=== PATIENT | female | born 2000 | race Caucasian/White ===

== ENCOUNTER 2024-05-26 12:22 | Inpatient (IN) | payer SELFPAY ==
[~2024-05-26] VITALS: Ht 170.2 cm; Wt 114.5 kg
--- NOTE | 2024-05-26 13:51 | NUR ---
Pt. to the floor. Pt is A&XO3, assessment complete. INT to rt. ac. Pt. reports pain is tolerable at this time. Call light within reach.
[2024-05-26] MEDS ORDERED: ZOFRAN 4MG T4 MG/TAB PO (13:57)
[2024-05-26] MEDS ORDERED: Acetaminophen 500 MG TAB PO PRN (14:15)
[2024-05-26] MEDS ORDERED: NS 1,000 ML IV SCH (14:15)
[2024-05-26] MEDS ORDERED: Morphine 4 MG/ML VIAL IV SCH (14:15)
[2024-05-26] MEDS ORDERED: Ondansetron 4 MG/2 ML VIAL IV PRN (14:15)
[2024-05-26 14:42] LABS: BASO % 0.5 % (0.0-2.0); EOS # 0.1 K/mm3 (0.0-0.7); EOS % 1.4 % (0.0-4.0); GRAN # 4.1 K/mm3 (1.4-6.5); GRAN % 63.5 % (42.2-75.2); HEMATOCRIT 39.6 % (37.0-47.0); LYMPH # 1.9 K/mm3 (1.2-3.4); LYMPH % 29.8 % (20.0-51.0); MEAN CELL VOLUME 88 fl (80.0-100.0); MEAN CORPUSCULAR HEMOGLOBIN 31 pg (27-31); MEAN CORPUSCULAR HGB CONC 35 g/dl (33.0-37.0); MEAN PLATELET VOLUME 10.4 fl (7.4-10.4); MONO # 0.3 K/mm3 (0.1-0.6); MONO % 4.6 % (1.7-9.3); PLATELET COUNT 243 K/mm3 (130-400); REDCELL DISTRIBUTION WIDTH-CV 11.4 % (11.5-14.5)
[2024-05-26] MEDS ORDERED: Morphine 4 MG/ML VIAL IV PRN (14:45)
[2024-05-26 15:01] LABS: ALBUMIN 3.5 g/dL (3.5-5.0); BILIRUBIN,TOTAL 0.3 mg/dL (0.2-1.2); CALCIUM 8.9 mg/dL (8.4-10.2); CREATININE, serum 0.7 mg/dL (0.57-1.11); MAGNESIUM 1.9 mg/dL (1.6-2.6); POTASSIUM 4.5 mEq/L (3.5-4.5); TOTAL PROTEIN 5.9 g/dl (6.2-8.1)
[2024-05-26 16:00] VITALS: BP 109/75; PULSE 65; TEMP 98.1
[2024-05-26 19:19] VITALS: BP 113/74; PULSE 59; TEMP 98.3
[2024-05-26 20:21] VITALS: BP_SYST 113
[2024-05-26 23:58] VITALS: BP 109/65; PULSE 68; TEMP 97.9
[2024-05-27] VITALS (15 sets, daily range): BP systolic 107–130; BP diastolic 54–72; PULSE 56–90; TEMP 97.6–98.2
[2024-05-27 06:30] LABS: BASO # 0.1 K/mm3 (0.0-0.2); EOS # 0.1 K/mm3 (0.0-0.7); EOS % 2.1 % (0.0-4.0); GRAN # 2.9 K/mm3 (1.4-6.5); GRAN % 56.2 % (42.2-75.2); HEMATOCRIT 37.8 % (37.0-47.0); HEMOGLOBIN 13.2 g/dl (12.5-16.0); LYMPH # 1.8 K/mm3 (1.2-3.4); LYMPH % 34.5 % (20.0-51.0); MEAN CELL VOLUME 89 fl (80.0-100.0); MEAN CORPUSCULAR HEMOGLOBIN 31 pg (27-31); MEAN CORPUSCULAR HGB CONC 35 g/dl (33.0-37.0); MEAN PLATELET VOLUME 10.4 fl (7.4-10.4); MONO # 0.3 K/mm3 (0.1-0.6); PLATELET COUNT 230 K/mm3 (130-400); RED BLOOD COUNT 4.26 M/mm3 (4.10-5.30); REDCELL DISTRIBUTION WIDTH-CV 11.4 % (11.5-14.5)
[2024-05-27 06:54] LABS: ALANINE AMINOTRANSFERASE 30 U/L (0-55); ALBUMIN 3.2 g/dL (3.5-5.0); ALKALINE PHOSPHATASE 65 U/L (40-150); ANION GAP 7 mmol/L (7-16); AST,SGOT 16 U/L (5-34); BILIRUBIN,TOTAL 0.5 mg/dL (0.2-1.2); CALCIUM 8.2 mg/dL (8.4-10.2); CHLORIDE 111 mEq/L (98-107); CREATININE, serum 0.69 mg/dL (0.57-1.11); GLUCOSE 86 mg/dL (70-99); POTASSIUM 4.2 mEq/L (3.5-4.5); SODIUM 141 mEq/L (136-145); TOTAL PROTEIN 5.4 g/dl (6.2-8.1)
[2024-05-27 06:56] LABS: BLOOD UREA NITROGEN < 5 mg/dL (7-19)
[2024-05-27] MEDS ORDERED: Influenza Virus Vaccine, Trivalent '24-25 0.5 ML SYRINGE IM SCH (09:00)
--- NOTE | 2024-05-27 09:41 | NUR ---
SHIFT ASSESSMENT COMPLETED. ALL MORNING MEDS GIVEN ORDERED BY THIS NURSE AND STUDENT NURSE. NS INFUSING AT 150 TO RT AC. PATIENT AMBULATED TO RESTROOM TO VOID AND SHOWER IND. PATIENT SCHEDULED FOR SURGERY TODAY AT 1400. PATIENT HAS NO REQUEST AT THIS TIME. CALL LIGHT IN REACH
[2024-05-27] MEDS ORDERED: Indocyanine Green 6.25 MG in Water For Injection,Sterile 1.25 ML IV SCH (12:00)
[2024-05-27] MEDS ORDERED: NS 10 ML IV ONE (12:26)
[2024-05-27] MEDS ORDERED: Ondansetron 4 MG/2 ML VIAL ONE (12:26)
[2024-05-27] MEDS ORDERED: fentaNYL 50 MCG/ML 2 ML VIAL ONE ×2 (12:26→15:34)
[2024-05-27] MEDS ORDERED: Rocuronium 50 MG/5 ML Multi-Dose VIAL ONE ×2 (12:26→15:20)
[2024-05-27] MEDS ORDERED: dexAMETHasone 10 MG/ML VIAL ONE (12:26)
[2024-05-27] MEDS ORDERED: Ketorolac 30 MG/ML VIAL ONE (12:26)
--- NOTE | 2024-05-27 13:03 | NUR ---
D: Metal Fabricating Supervisor stopped by room on rounds. A: Pt was resting and content. Pt has no needs right now. P: Metal Fabricating Supervisor informed pt that if she needed anything from the chip bin conveyor tender area to let her nurse know. Metal Fabricating Supervisor will follow up as needed.
[2024-05-27] MEDS ORDERED: hydrALAZINE 20 MG/ML 1 ML VIAL IV PRN (15:00)
[2024-05-27] MEDS ORDERED: HYDROmorphone 1 MG/1 ML SYRINGE [PACU/SDC ONLY] IV PRN (15:00)
[2024-05-27] MEDS ORDERED: Meperidine 50 MG/ML 1 ML VIAL IV PRN (15:00)
[2024-05-27] MEDS ORDERED: Ondansetron 4 MG/2 ML VIAL IV PRN ×2 (15:00→16:00)
[2024-05-27] MEDS ORDERED: droPERidol 2.5 MG/ML 2 ML VIAL IV PRN (15:00)
[2024-05-27] MEDS ORDERED: Morphine 2 MG/1 ML VIAL [PACU/SDC ONLY] IV PRN (15:00)
[2024-05-27] MEDS ORDERED: fentaNYL 50 MCG/ML 1 ML SYRINGE/VIAL [PACU/SDC ONLY] IV PRN (15:00)
[2024-05-27] MEDS ORDERED: Topical Skin Adhesive 1 EACH (1 ML) TOP ONE (15:18)
[2024-05-27] MEDS ORDERED: Iohexol 350 - 100 ML VIAL BILE DUCT ONE (15:18)
[2024-05-27] MEDS ORDERED: Ibuprofen 600 MG TAB PO PRN (16:00)
[2024-05-27] MEDS ORDERED: Acetaminophen 325 MG TAB PO PRN (16:00)
--- NOTE | 2024-05-27 16:22 | NUR ---
willow worker and DREW Maldonado met with patient to discuss discharge planning. Patient lives in [place] with her "sister" Olga, P# [phone]. PCP is Shikha at [facility] once her Medicaid starts. DREW provided [facility] information until patient's Medicaid is approved. Pharmacy is [facility]. No issues affording medications. Patient reports she applied for Medicaid already but does not currently have insurance. SW discussed DPOA-HC, patient stated she does not have one. SW explaine without a DPOA-HC it would go to patient's next of kin such as parents or . Patient stated she is not in contact with her parents so she said "good luck on contacting them." SW discussed completing a DPOA-HC. Patient stated she would like to appoint Olga whom is not her blood sister but more of a sister in law, P# [phone]. DREW and DREW Maldonado witnessed patient's signature. DREW made copies, placed copy in chart and provided copies and original to patient. Patient has no DME and independent with [facility]LS. Patient reports to have transportation to and from appointments. Patient has no concerns about returning home at time of discharge. Discharge plan: Home
--- NOTE | 2024-05-27 16:26 | NUR ---
REPORT RECEIVED FROM MAGALIS IN PACU. PATIENT HAVING SOME NAUSEA AND PAIN 3/10. PAIN MEDS GIVEN AND ANTINAUSEA MEDS GIVEN. VSS. PATIENT HAS 5 LAP SITES W/ SKIN GLUE. PATIENT TO ARRIVE TO FLOOR SOON.
--- NOTE | 2024-05-27 19:50 | NUR ---
During shift change, patient asked if she was allowed to discharge tonight. Patient had discharge orders. Patient had been able to eat, drink, and void without difficulty. Reports pain is under control. Went over discharge instructions at 1935. IV taken out from right AC. Patient's sister came to pick patient up. [employer] employee assisted patient out of hospital at 1950 via wheelchair. Voiced understanding of discharge plan, and denied having any questions, needs, or concerns.
== END 2024-05-27 19:50 | disposition home or self-care (01) | DRG 419 ==
LOC: SURG 12:22
PROVIDERS: ADMIT Internal Medicine
PROC: 0FT44ZZ Resection of Gallbladder, Percutaneous Endoscopic Approach (ICD-10-PCS; principal; 2024-05-26)
PROC: 8E0W4CZ Robotic Assisted Procedure of Trunk Region, Percutaneous Endoscopic Approach (ICD-10-PCS; 2024-05-26)
PROC: BF101ZZ Fluoroscopy of Bile Ducts using Low Osmolar Contrast (ICD-10-PCS; 2024-05-26)
DX: K85.10 Biliary acute pancreatitis without necrosis or infection (principal); Z87.891 Personal history of nicotine dependence; K21.9 Gastro-esophageal reflux disease without esophagitis
CPT/HCPCS: J0690; J1100; J1171; J1650; J1790; J1885; J2405; J2704; J3010; J7030; Q9967